=== PATIENT | male | born 1955 | race Caucasian/White ===

== ENCOUNTER 2016-06-05 12:23 | Outpatient (CLI) | payer OTHER | END 2016-06-05 12:24 | disposition home or self-care (01) | DX: K57.30 Diverticulosis of large intestine without perforation or abscess without bleeding (principal) ==

== ENCOUNTER 2016-06-12 08:49 | Day surgery (SDC) | payer OTHER ==
[2016-06-12] MEDS ORDERED: ceFAZolin 2 GM/50 ML 50 ML IV ONE (09:12)
[2016-06-12] MEDS ORDERED: LACTATED RINGERS 1,000 ML IV ONE (09:15)
[2016-06-12] MEDS ORDERED: MIDAZOLAM 2 MG/2 ML VIAL IVP ONE (11:00)
[2016-06-12] MEDS ORDERED: PROPOFOL 200 MG/20 ML VIAL IVP ONE (11:00)
[2016-06-12] MEDS ORDERED: LIDOCAINE 1% 50 ML MDV SUBQ ONE (11:00)
[2016-06-12] MEDS ORDERED: DEXAMETHASONE 4 MG/ML VIAL IVP ONE (11:00)
[2016-06-12] MEDS ORDERED: fentaNYL 100 MCG/2 ML VIAL IVP ONE (11:00)
[2016-06-12] MEDS ORDERED: KETOROLAC 30 MG/ML VIAL IVP ONE (11:00)
[2016-06-12] MEDS ORDERED: ONDANSETRON 4 MG/2 ML VIAL IVP ONE (11:00)
[2016-06-12] MEDS ORDERED: BUPIVACAINE 0.5% PF 30 ML VIAL SUBQ ONE ×2 (11:26→12:25)
== END 2016-06-12 08:50 | disposition home or self-care (01) ==
PROC: 07BC0ZZ Excision of Pelvis Lymphatic, Open Approach (ICD-10-PCS; 2016-06-12)
PROC: 0YU80JZ Supplement Left Femoral Region with Synthetic Substitute, Open Approach (ICD-10-PCS; principal; 2016-06-12 10:15)
DX: K41.90 Unilateral femoral hernia, without obstruction or gangrene, not specified as recurrent (principal); R59.0 Localized enlarged lymph nodes; I10 Essential (primary) hypertension; R06.83 Snoring; E66.9 Obesity, unspecified; Z68.36 Body mass index [BMI] 36.0-36.9, adult
CPT/HCPCS: 49550; C1781; J0690; J7120

== ENCOUNTER 2017-11-12 17:09 | Emergency (ER) | payer OTHER ==
[2017-11-12 18:28] LABS: BASOPHILS # (AUTO) 0.1 10^3/uL (0.0-0.1); BASOPHILS % (AUTO) 0.9 %; EOSINOPHILS # (AUTO) 0.3 10^3/uL (0.0-0.7); EOSINOPHILS % (AUTO) 4.4 %; HGB - HEMOGLOBIN 15.2 g/dL (14.0-18.0); LYMPHOCYTES % (AUTO) 39.8 %; MEAN CORPUSCULAR HEMOGLOBIN 31.3 pg (27.0-31.0); MEAN CORPUSCULAR HGB CONC 33.9 g/dL (32.0-36.0); MEAN CORPUSCULAR VOLUME 92.2 fL (80.0-94.0); MEAN PLATELET VOLUME 7.7 fL (7.4-11.4); MONOCYTES # (AUTO) 0.6 10^3/uL (0.0-1.0); MONOCYTES % (AUTO) 7.3 %; NEUTROPHILS # (AUTO) 3.6 10^3/uL (1.5-6.6); NEUTROPHILS % (AUTO) 47.6 %; PLT - PLATELET COUNT 212 10^3/uL (130-450); RED BLOOD COUNT 4.85 10^6/uL (4.70-6.10); RED CELL DISTRIBUTION WIDTH 13.9 % (12.0-15.0); WHITE BLOOD COUNT 7.6 x10^3/uL (4.8-10.8)
--- NOTE | 2017-11-12 18:30 | ED Physician Documentation ---
PD HPI CHEST PAIN - Stated complaint Stated Complaint: CP/SOA/TIRED - Chief complaint Chief Complaint: Cardiac - History obtained from History obtained from: Patient - History of Present Illness Timing - onset: How many hours ago (3), Today Timing - onset during: Rest (he was sitting in recliner chair after lunch and felt onset of nausea, chest pressure and dyspnea. This lasted about an hour or so. Improved slowly. Symptoms essentially resolved here in the ER by time of my exam.) Timing - duration: Hours (1-2) Timing - details: Abrupt onset, Now resolved Quality: Pressure, Aching. No: Sharp, Stabbing Location: Substernal Radiation: Neck Improved by: No: Rest Worsened by: No: Inspiration, Movement Associated symptoms: Shortness of air, Nausea, Feeling faint / dizzy. No: Vomiting, General Weakness, Palpitations Similar symptoms before: Has not had sx before, Other (he was doing more exertion the past couple of days playing with his grandson and felt okay during that. Was a little sore in back yesterday. No exertional CP nor dyspnea with activity.) Recently seen: Not recently seen Review of Systems Constitutional: denies: Fever, Chills Nose: denies: Rhinorrhea / runny nose, Congestion Throat: denies: Sore throat Cardiac: denies: Palpitations, Pedal edema, Calf pain Respiratory: denies: Cough GI: denies: Abdominal Pain, Nausea, Vomiting, Diarrhea, Bloody / black stool Skin: denies: Rash, Lesions Neurologic: reports: Generalized weakness. denies: Focal weakness, Numbness, Near syncope PD PAST MEDICAL HISTORY - Past Medical History Past Medical History: Yes Cardiovascular: Hypertension, High cholesterol Respiratory: None Endocrine/Autoimmune: None GI: None : None HEENT: None Psych: None Musculoskeletal: Other Derm: None - Past Surgical History Past Surgical History: Yes General: Colonoscopy, EGD Ortho: Arthroscopic surgery HEENT: Tonsil/Adenoidectomy - Present Medications Home Medications: Ambulatory Orders Medication Instructions Recorded Confirmed Aspirin [Aspir 81] 81 mg PO DAILY 05/02/15 06/11/16 Hydrochlorothiazide 25 mg PO DAILY 05/02/15 06/11/16 Ibuprofen [Motrin] 800 mg PO Q8H PRN 05/02/15 06/11/16 Lisinopril 10 mg PO DAILY 05/02/15 06/11/16 Simvastatin 20 mg PO DAILY 05/02/15 06/11/16 Multivitamin [Multi-Day Vitamins] 1 each PO DAILY 05/04/15 06/12/16 Omeprazole [Prilosec] 1 tab PO DAILY 05/04/15 06/11/16 - Allergies Allergies/Adverse Reactions: Allergies Allergy/AdvReac Type Severity Reaction Status Date / Time No Known Drug Allergies Allergy Verified 05/02/15 13:41 - Social History Does the pt smoke?: No Smoking Status: Never smoker Does the pt drink ETOH?: Yes Does the pt have substance abuse?: No - Family History Family history: reports: CAD - Immunizations Immunizations are current?: Yes - POLST Patient has POLST: No PD ED PE NORMAL - Vitals Vital signs reviewed: Yes - General General: Alert and oriented X 3, No acute distress, Well developed/nourished - HEENT HEENT: Moist mucous membranes, Pharynx benign - Neck Neck: Supple, no meningeal sign, No adenopathy - Cardiac Cardiac: RRR, No murmur - Respiratory Respiratory: Clear bilaterally - Abdomen Abdomen: Normal bowel sounds, Soft, Non tender, Non distended - Male Male : Deferred - Rectal Rectal: Deferred - Back Back: No CVA TTP - Derm Derm: Normal color, Warm and dry - Extremities Extremities: No deformity, No tenderness to palpate, Normal ROM s pain, No edema , No calf tenderness / cord - Neuro Neuro: Alert and oriented X 3, No motor deficit, Normal speech Results - Vitals Vitals: Vital Signs - 24 hr 11/12/17 11/12/17 11/12/17 17:19 20:01 20:57 Temperature 36.3 C L Heart Rate 73 58 L 63 Respiratory 18 16 16 Rate Blood Pressure 133/81 H 113/75 110/76 O2 Saturation 96 96 99 Oxygen O2 Source Room air - EKG (time done) 17:21 Rate: Rate (enter#) (68) Rhythm: NSR [place]: Normal Intervals: Normal NM QRS: Normal Ischemia: Normal ST segments. No: ST elevation c/w ischemia, ST depression Compare to prior EKG: Old EKG unavailable - Labs Labs: Laboratory Tests 11/12/17 11/12/17 11/12/17 18:20 18:24 18:24 WBC 7.6 RBC 4.85 Hgb 15.2 Hct 44.8 MCV 92.2 MCH 31.3 H MCHC 33.9 RDW 13.9 Plt Count 212 MPV 7.7 Neut # (Auto) 3.6 Lymph # (Auto) 3.0 [place] # (Auto) 0.6 Eos # (Auto) 0.3 Baso # (Auto) 0.1 Absolute Nucleated RBC 0.01 Nucleated RBC % 0.1 Sodium 135 Potassium 3.2 L Chloride 96 L Carbon Dioxide 30 Anion Gap 9.0 BUN 27 H Creatinine 1.2 Estimated GFR (MDRD) 62 L Glucose 130 H Calcium 8.9 Total Bilirubin 0.5 AST 25 ALT 18 Alkaline Phosphatase 88 Troponin I B-Natriuretic Peptide < 5 L Total Protein 7.8 Albumin 4.0 Globulin 3.8 Albumin/Globulin Ratio 1.1 Lipase 28 11/12/17 11/12/17 18:24 20:09 WBC RBC Hgb Hct MCV MCH MCHC RDW Plt Count MPV Neut # (Auto) Lymph # (Auto) [place] # (Auto) Eos # (Auto) Baso # (Auto) Absolute Nucleated RBC Nucleated RBC % Sodium Potassium Chloride Carbon Dioxide Anion Gap BUN Creatinine Estimated GFR (MDRD) Glucose Calcium Total Bilirubin AST ALT Alkaline Phosphatase Troponin I < 0.04 < 0.04 B-Natriuretic Peptide Total Protein Albumin Globulin Albumin/Globulin Ratio Lipase - Rads (name of study) chest xray Radiology: Prelim report reviewed, EMP read contemporaneously (normal) PD MEDICAL DECISION MAKING - ED course Complexity details: re-evaluated patient (pain still gone and repeat troponin is normal (at about 5 hours after pain episode). ), considered differential, d/ w patient - Sepsis Event Vital Signs: Vital Signs - 24 hr 11/12/17 11/12/17 11/12/17 17:19 20:01 20:57 Temperature 36.3 C L Heart Rate 73 58 L 63 Respiratory 18 16 16 Rate Blood Pressure 133/81 H 113/75 110/76 O2 Saturation 96 96 99 Oxygen O2 Source Room air Departure - Departure Disposition: 01 Home, Self Care Clinical Impression: Chest pain Qualifiers: Chest pain type: precordial pain Qualified Code(s): R07.2 - Precordial pain Clinical Impression: (Ruled Out): Myocardial infarction Condition: Stable Record reviewed to determine appropriate education?: Yes Instructions: ED Chest Pain NonCardiac Comments: No signs of heart attack or heart failure based on your EKG or blood tests. Your chest x-ray appeared normal as well. I do not know the cause of the chest discomfort that you had earlier. It might have been reflux or heartburn. It does not look to be heart caused at this time. Follow up with your primary care if recurrent episodes and return to the ER if worse symptoms. Discharge Date/Time: 11/12/17 21:37
[2017-11-12 18:41] LABS: ALBUMIN/GLOBULIN RATIO 1.1 (1.0-2.2); BILIRUBIN,TOTAL 0.5 mg/dL (0.2-1.0); CALCIUM 8.9 mg/dL (8.5-10.3); CREATININE 1.2 mg/dL (0.6-1.2); TOTAL PROTEIN 7.8 g/dL (6.7-8.2)
--- NOTE | 2017-11-12 19:17 | XRAY Report ---
Procedure Date: 11/12/2017 Accession Number: [id number] / [id number] Procedure: XR - Chest 1 View X-Ray CPT Code: 64800 FULL RESULT: EXAM: CHEST RADIOGRAPHY EXAM DATE: 11/12/2017 06:56 PM. CLINICAL HISTORY: Chest pain this afternoon. COMPARISON: None. TECHNIQUE: 1 view. FINDINGS: Lungs/Pleura: No focal opacities evident. No pleural effusion. No pneumothorax. Mediastinum: Heart size is normal. Trachea is midline. Other: None. IMPRESSION: Negative chest. RADIA
[2017-11-12 20:58] VITALS: BP 110/76
== END 2017-11-12 21:37 | disposition home or self-care (01) ==
LOC: ED 17:09
DX: R07.2 Precordial pain (principal)
CPT/HCPCS: 36415; 71045; 80053; 83690; 83880; 84484; 85025; 93005; 99283

== ENCOUNTER 2018-08-24 15:57 | Emergency (ER) | payer OTHER ==
[2018-08-24] MEDS ORDERED: KETOROLAC 30 MG/ML VIAL IVP STA (16:10)
[2018-08-24] MEDS ORDERED: HYDROmorphone 1 MG/ML CARPUJECT IVP STA (16:10)
[2018-08-24] MEDS ORDERED: ONDANSETRON 4 MG/2 ML VIAL IVP STA (16:10)
--- NOTE | 2018-08-24 16:12 | ED Physician Documentation ---
PD HPI BACK PAIN - Stated complaint Stated Complaint: BACK PX - Chief complaint Chief Complaint: Back Pain - History obtained from History obtained from: Patient - History of Present Illness Timing - onset: Other (62-year-old gentleman with remote history of renal colic presents with mild flank pain that started 2 days ago and is much more severe today. It is on the left. It radiated down the leg a little bit. It hurts to move. He denies nausea, vomiting, saddle anesthesia, urinary complaints, or problems with bowel movements save for mild constipation but he did have a normal BM today. No fevers.) Review of Systems Constitutional: reports: Reviewed and negative Throat: reports: Reviewed and negative Cardiac: reports: Reviewed and negative Respiratory: reports: Reviewed and negative PD PAST MEDICAL HISTORY - Past Medical History Cardiovascular: Hypertension, High cholesterol Respiratory: None Endocrine/Autoimmune: None GI: None : None HEENT: None Psych: None Musculoskeletal: Other Derm: None - Past Surgical History Past Surgical History: Yes General: Colonoscopy, EGD Ortho: Arthroscopic surgery HEENT: Tonsil/Adenoidectomy - Present Medications Home Medications: Ambulatory Orders Medication Instructions Recorded Confirmed Aspirin [Aspir 81] 81 mg PO DAILY 05/02/15 08/24/18 Hydrochlorothiazide 25 mg PO DAILY 05/02/15 08/24/18 Simvastatin 20 mg PO DAILY 05/02/15 08/24/18 Multivitamin [Multi-Day Vitamins] 1 each PO DAILY 05/04/15 08/24/18 Levofloxacin [Levaquin] 500 mg PO DAILY #7 tablet 08/24/18 Oxycodone HCl/Acetaminophen 1 - 2 each PO Q6H PRN #14 tablet 08/24/18 [Percocet 5-325 mg Tablet] - Allergies Allergies/Adverse Reactions: Allergies Allergy/AdvReac Type Severity Reaction Status Date / Time No Known Drug Allergies Allergy Verified 08/24/18 16:02 - Social History Does the pt smoke?: No Smoking Status: Never smoker Does the pt drink ETOH?: Yes Does the pt have substance abuse?: No - Immunizations Immunizations are current?: Yes - POLST Patient has POLST: No PD ED PE NORMAL - Vitals Vital signs reviewed: Yes - General General: Alert and oriented X 3, Other (Visibly uncomfortable and wincing with motion) - HEENT HEENT: PERRL, EOMI - Neck Neck: Supple, no meningeal sign, No bony TTP - Cardiac Cardiac: RRR, No murmur - Respiratory Respiratory: No respiratory distress, Clear bilaterally - Abdomen Abdomen: Soft, Non tender - Back Back: Other (Tender to the left flank that seems a little more muscular than CVA per se. Its a little to the lateral area of the left flank. No overlying rash. The patient has equal and normal Achilles and patellar reflexes bilaterally. Normal sensation in all areas of the legs. Patient denies saddle anesthesia. Normal strength in flexion-extension at the ankles, knees, and flexion of the hips.) - Extremities Extremities: No edema, No calf tenderness / cord - Neuro Neuro: Alert and oriented X 3, Normal speech Results - Vitals Vitals: Vital Signs - 24 hr 08/24/18 16:01 Temperature 36.7 C Heart Rate 71 Respiratory 18 Rate Blood Pressure 167/77 H O2 Saturation 95 Oxygen O2 Source Room air - Labs Labs: Laboratory Tests 08/24/18 08/24/18 08/24/18 16:24 16:25 16:25 WBC 7.5 RBC 5.02 Hgb 15.4 Hct 45.2 MCV 89.9 MCH 30.7 MCHC 34.2 RDW 14.0 Plt Count 212 MPV 8.0 Neut # (Auto) 3.3 Lymph # (Auto) 3.0 [place] # (Auto) 0.8 Eos # (Auto) 0.3 Baso # (Auto) 0.1 Absolute Nucleated RBC 0.01 Nucleated RBC % 0.1 Sodium 135 Potassium 3.4 L Chloride 98 L Carbon Dioxide 29 Anion Gap 8.0 BUN 21 H Creatinine 1.0 Estimated GFR (MDRD) 76 L Glucose 101 H Calcium 8.8 Total Bilirubin 0.4 AST 31 ALT 31 Alkaline Phosphatase 80 Total Protein 7.5 Albumin 3.8 Globulin 3.7 Albumin/Globulin Ratio 1.0 Lipase 29 Urine Color YELLOW Urine Clarity CLEAR Urine pH 7.0 Ur Specific [place] <=1.005 Urine Protein NEGATIVE Urine Glucose (UA) NEGATIVE Urine Ketones NEGATIVE Urine Occult Blood TRACE-INTA Urine Nitrite POSITIVE H Urine Bilirubin NEGATIVE Urine Urobilinogen 0.2 (NORMAL) Ur Leukocyte Esterase NEGATIVE Urine RBC 6-10 H Urine WBC 0-3 Ur Squamous Epith Cells NONE SEEN Urine Bacteria Rare Urine Starch PRESENT Ur Microscopic Review INDICATED Urine Culture Comments INDICATED - Rads (name of study) CT KUB Radiology: EMP read contemporaneously (No ureterolith, he does have a dilated appendix with an appendicolith at the tip but no other secondary signs of appendicitis.) PD MEDICAL DECISION MAKING - ED course ED course: 62-year-old gentleman presents with left-sided back pain that seems more musculoskeletal than anything else and is closely associated with motion. He had a history of nephrolithiasis and this is also on the differential. He was feeling much better after pain medication. His work-up demonstrates evidence of UTI and CT results as shown. He has no right-sided abdominal pain, no tenderness in the right lower quadrant. The diagnosis of an appendicolith was discussed with him, and he understands that if he develops central abdominal pain or right lower quadrant pain this needs to be made aware to any subsequent physicians. Departure - Departure Disposition: 01 Home, Self Care Clinical Impression: Appendicolith Back pain Qualifiers: Back pain location: low back pain Chronicity: acute Back pain laterality: left Sciatica presence: without sciatica Qualified Code(s): M54.5 - Low back pain UTI (urinary tract infection) Qualifiers: Urinary tract infection type: acute pyelonephritis Qualified Code(s): N10 - Acute pyelonephritis Condition: Good Record reviewed to determine appropriate education?: Yes Instructions: ED UTI Cystitis Male, ED Low Back Pain Injury Prescriptions: Levofloxacin [Levaquin] 500 mg PO DAILY #7 tablet Oxycodone HCl/Acetaminophen [Percocet 5-325 mg Tablet] 1 - 2 each PO Q6H PRN #14 tablet PRN Reason: pain Comments: DISCUSSED YOU HAVE AN APPENDICOLITH This puts you at increased risk of developing appendicitis in the future which have no sign of right now but if you develop right lower quadrant pain or central abdominal pain please notify any subsequent physicians of this diagnosis. Return for new or worsening symptoms. We will culture your urine, the results should be done in 48-72 hours. If an antibiotic change is necessary we will call you. Return if worse in the meantime, especially if you develop increasing flank pain, fevers, or cannot keep down the medication. Forms: Activity restrictions
[2018-08-24 16:40] LABS: BILIRUBIN,URINE NEGATIVE (NEGATIVE); GLUCOSE, URINE (UA) NEGATIVE (NEGATIVE); KETONES,URINE (UA) NEGATIVE (NEGATIVE); LEUKOCYTE ESTERASE, URINE NEGATIVE (NEGATIVE); NITRITE,URINE POSITIVE (NEGATIVE); OCCULT BLOOD,URINE TRACE-INTA (NEGATIVE); PROTEIN,URINE NEGATIVE (NEGATIVE); UROBILINOGEN,URINE 0.2 (NORMAL) E.U./dL (NORMAL)
[2018-08-24 16:41] LABS: BASOPHILS # (AUTO) 0.1 10^3/uL (0.0-0.1); BASOPHILS % (AUTO) 0.7 %; EOSINOPHILS # (AUTO) 0.3 10^3/uL (0.0-0.7); EOSINOPHILS % (AUTO) 4.6 %; HGB - HEMOGLOBIN 15.4 g/dL (14.0-18.0); LYMPHOCYTES % (AUTO) 40.3 %; MEAN CORPUSCULAR HEMOGLOBIN 30.7 pg (27.0-31.0); MEAN CORPUSCULAR HGB CONC 34.2 g/dL (32.0-36.0); MEAN CORPUSCULAR VOLUME 89.9 fL (80.0-94.0); MONOCYTES # (AUTO) 0.8 10^3/uL (0.0-1.0); MONOCYTES % (AUTO) 10.2 %; NEUTROPHILS # (AUTO) 3.3 10^3/uL (1.5-6.6); NEUTROPHILS % (AUTO) 44.2 %; PLT - PLATELET COUNT 212 10^3/uL (130-450); RED BLOOD COUNT 5.02 10^6/uL (4.70-6.10); WHITE BLOOD COUNT 7.5 x10^3/uL (4.8-10.8)
[2018-08-24 16:44] LABS: ALBUMIN 3.8 g/dL (3.2-5.5); BILIRUBIN,TOTAL 0.4 mg/dL (0.2-1.0); CALCIUM 8.8 mg/dL (8.5-10.3); TOTAL PROTEIN 7.5 g/dL (6.7-8.2)
[2018-08-24 16:45] LABS: CLARITY,URINE CLEAR (CLEAR)
[2018-08-24 16:53] LABS: BACTERIA,URINE Rare /HPF (None Seen); SQUAMOUS EPITHELIAL CELL,UR NONE SEEN (<= Few); STARCH,URINE PRESENT
--- NOTE | 2018-08-24 17:06 | CT Report ---
Reason: L flank pain Procedure Date: 08/24/2018 Accession Number: [id number] / [id number] Procedure: CT - Abdomen/Pelvis WO CPT Code: FULL RESULT: EXAM: CT ABDOMEN AND PELVIS (CT KUB) EXAM DATE: 08/24/2018 04:48 PM. CLINICAL HISTORY: L flank pain. COMPARISONS: PELVIS W/O 06/05/2016 12:47 PM. TECHNIQUE: Routine axial helical CT imaging was performed through the abdomen and pelvis without IV contrast. Reconstructions: Coronal and sagittal. In accordance with CT protocol optimization, one or more of the following dose reduction techniques were utilized for this exam: automated exposure control, adjustment of mA and/or KV based on patient size, or use of iterative reconstructive technique. FINDINGS: Lung Bases: Unremarkable. Right Kidney/Ureter: No stones, hydronephrosis, or hydroureter. No perinephric fat stranding. Left Kidney/Ureter: No stones, hydronephrosis, or hydroureter. No perinephric fat stranding. Other Solid Organs: Noncontrast images of the solid organs are grossly unremarkable. Gallbladder/Bile Ducts: The gallbladder is contracted. Peritoneal Cavity: Small hiatal hernia. Nonobstructive bowel gas pattern. Diverticulosis of the sigmoid colon without evidence of acute diverticulitis. The appendix measures up to 13 mm in diameter. There is a 3 mm calcified appendicolith at the tip of the appendix. No significant inflammatory change to the periappendiceal mesentery or cecal base. No free air or free fluid. Pelvic Organs: No bladder stones or wall thickening. Noncontrast images of the visualized pelvic organs are unremarkable. Probable vasectomy changes in the spermatic cords. Vasculature: Scattered calcified plaques throughout the abdominal aorta without evidence of aneurysm. There is a retroaortic left renal vein. Other: No acute fracture or dislocation. Degenerative disk disease at L5-S1, T12-L1, and T10-T11. IMPRESSION: No evidence of hydronephrosis or nephrolithiasis. Dilated appendix measuring up to 13 mm in diameter with intraluminal appendicolith at the tip of the appendix. No significant associated inflammatory changes. Recommend clinical correlation for evidence of acute appendicitis. Small hiatal hernia. Nonobstructive bowel gas pattern. Sigmoid diverticulosis without evidence of acute diverticulitis. RADIA
[2018-08-24] MEDS ORDERED: levoFLOXacin 250 MG TABLET PO STA (17:13)
[2018-08-24] MEDS ORDERED: oxyCODONE/ACET 5/325 Prepack 4 PO STA (17:13)
[2018-08-24 17:24] VITALS: BP 117/80
== END 2018-08-24 17:26 | disposition home or self-care (01) ==
LOC: ED 15:57
DX: N10 Acute pyelonephritis (principal); K38.1 Appendicular concretions; M54.5 Low back pain; I10 Essential (primary) hypertension; Z87.442 Personal history of urinary calculi; Z79.82 Long term (current) use of aspirin
CPT/HCPCS: 36415; 74176; 80053; 81001; 83690; 85025; 87086; 96374; 96375; 99283; 99284; A9270; J1170; 81003

== ENCOUNTER 2018-10-11 11:47 | Emergency (ER) | payer OTHER ==
[2018-10-11 11:55] VITALS: BP 170/91
--- NOTE | 2018-10-11 13:15 | XRAY Report ---
Reason: heel pain while playing tennis Procedure Date: 10/11/2018 Accession Number: [id number] / [id number] Procedure: XR - Foot 3 View LT CPT Code: FULL RESULT: EXAM: LEFT FOOT RADIOGRAPHY EXAM DATE: 10/11/2018 01:01 PM. CLINICAL HISTORY: Heel pain while playing tennis. Quentin a pop. Instant pain. COMPARISON: None. TECHNIQUE: 3 views. FINDINGS: Bones: Small well-corticated plantar calcaneal enthesophyte. No fracture. No lucent or sclerotic lesion. Joints: Normal. No subluxations. Soft Tissues: Mild soft tissue swelling over the medial midfoot. IMPRESSION: No fracture or malalignment. RADIA
--- NOTE | 2018-10-11 13:16 | ED Physician Documentation ---
History of Present Illness - Stated complaint Stated Complaint: LFT HEEL INJ - Chief complaint Chief Complaint: Trauma Ext - History obtained from History obtained from: Patient - History of Present Illness Timing: Prior to arrival - Additonal information Additional information: Patient is a 63-year-old male presenting with left heel pain while playing tennis just prior to arrival. Patient reports that he stepped on his foot and then felt a popping sensation and pain. Patient reports it has been difficult to bear weight. Patient denies any external changes including abrasions, bulges, or lacerations. Patient also denies any sensation, strength, range of motion changes to this foot or leg. No other injuries. No other improving or worsening factors noted. Review of Systems Skin: denies: Rash Musculoskeletal: reports: Extremity pain PD PAST MEDICAL HISTORY - Past Medical History Cardiovascular: Hypertension, High cholesterol Respiratory: None Endocrine/Autoimmune: None GI: None : None HEENT: None Psych: None Musculoskeletal: Other Derm: None - Past Surgical History Past Surgical History: Yes General: Colonoscopy, EGD Ortho: Arthroscopic surgery HEENT: Tonsil/Adenoidectomy - Present Medications Home Medications: Ambulatory Orders Medication Instructions Recorded Confirmed Aspirin [Aspir 81] 81 mg PO DAILY 05/02/15 08/24/18 Hydrochlorothiazide 25 mg PO DAILY 05/02/15 08/24/18 Simvastatin 20 mg PO DAILY 05/02/15 08/24/18 Multivitamin [Multi-Day Vitamins] 1 each PO DAILY 05/04/15 08/24/18 Levofloxacin [Levaquin] 500 mg PO DAILY #7 tablet 08/24/18 Oxycodone HCl/Acetaminophen 1 - 2 each PO Q6H PRN #14 tablet 08/24/18 [Percocet 5-325 mg Tablet] - Allergies Allergies/Adverse Reactions: Allergies Allergy/AdvReac Type Severity Reaction Status Date / Time No Known Drug Allergies Allergy Verified 08/24/18 16:02 - Social History Does the pt smoke?: No Smoking Status: Never smoker Does the pt drink ETOH?: Yes Does the pt have substance abuse?: No - Immunizations Immunizations are current?: Yes - POLST Patient has POLST: No PD ED PE NORMAL - Vitals Vital signs reviewed: Yes - General General: Alert and oriented X 3, No acute distress, Well developed/nourished - Cardiac Cardiac: Strong equal pulses (Cap refill brisk) - Respiratory Respiratory: No respiratory distress - Derm Derm: Normal color, Warm and dry, No rash - Extremities Extremities: No deformity. No: No tenderness to palpate (Mild tenderness to left heel only with no obvious deformity. Intact palpable, nontender Achilles tendon. No other bony tenderness, deformity, swelling or other changes. Left lower extremity neurovascularly intact with appropriate range of motion and strength.) - Neuro Neuro: Alert and oriented X 3, No motor deficit, No sensory deficit - Psych Psych: Normal mood, Normal affect Results - Vitals Vitals: Vital Signs - 24 hr 10/11/18 11:53 Temperature 36.4 C L Heart Rate 80 Respiratory 18 Rate Blood Pressure 170/91 H O2 Saturation 95 Oxygen O2 Source Room air PD MEDICAL DECISION MAKING - ED course Complexity details: reviewed results, re-evaluated patient, considered differential, d/w patient ED course: Patient has a history of plantar fasciitis and feel this could likely be a flare. Also consider an Achilles tendon tear or rupture, however, based on physical exam findings, location of discomfort, and range of motion, feel less likely. Patient has no pain along palpation of Achilles tendon at all. No other bony tenderness to indicate fracture and plain film returned unremarkable. No other external infectious signs or trauma. Feel that patient is safe to discharge home with crutches and supportive cares. Also discussed strict return precautions and appropriate follow-up. Patient voiced understanding and is comfortable with discharge plan. Departure - Departure Disposition: 01 Home, Self Care Clinical Impression: Foot injury Qualifiers: Encounter type: initial encounter Laterality: left Qualified Code(s): S99.922A - Unspecified injury of left foot, initial encounter Condition: Good Instructions: Heel Pain Follow-Up: Delmi Fabian ARNP [Primary Care Provider] - Within 3 Days Comments: Recommend elevation, ice application, ibuprofen/Tylenol as needed for discomfort. Please refrain from any strenuous exercise until fully healed. Follow-up with primary care physician in next 2 to 3 days and return to ED sooner if experience worsening symptoms or other concerns.
== END 2018-10-11 13:51 | disposition home or self-care (01) ==
LOC: ED 11:47
DX: S99.922A Unspecified injury of left foot, initial encounter (principal); X50.9XXA Other and unspecified overexertion or strenuous movements or postures, initial encounter; Y93.73 Activity, racquet and hand sports; Y92.312 Tennis court as the place of occurrence of the external cause; I10 Essential (primary) hypertension; Z79.82 Long term (current) use of aspirin
CPT/HCPCS: 99282

== ENCOUNTER 2019-09-12 03:40 | Emergency (ER) | payer OTHER ==
[2019-09-12 03:52] VITALS: BP 175/95
[2019-09-12] MEDS ORDERED: ALBUTEROL 1 PUFF INH STA (04:14)
[2019-09-12 04:33] LABS: BASOPHILS # (AUTO) 0.1 10^3/uL (0.0-0.1); BASOPHILS % (AUTO) 0.7 %; EOSINOPHILS # (AUTO) 0.4 10^3/uL (0.0-0.7); EOSINOPHILS % (AUTO) 5.1 %; HGB - HEMOGLOBIN 15.5 g/dL (14.0-18.0); LYMPHOCYTES % (AUTO) 40.3 %; MEAN CORPUSCULAR HEMOGLOBIN 29.5 pg (27.0-31.0); MEAN CORPUSCULAR HGB CONC 33.3 g/dL (32.0-36.0); MEAN CORPUSCULAR VOLUME 88.8 fL (80.0-94.0); MEAN PLATELET VOLUME 9.7 fL (7.4-11.4); MONOCYTES # (AUTO) 0.5 10^3/uL (0.0-1.0); MONOCYTES % (AUTO) 6.8 %; NEUTROPHILS # (AUTO) 3.5 10^3/uL (1.5-6.6); NEUTROPHILS % (AUTO) 46.7 %; PLT - PLATELET COUNT 205 10^3/uL (130-450); RED BLOOD COUNT 5.25 10^6/uL (4.70-6.10); RED CELL DISTRIBUTION WIDTH 13.2 % (12.0-15.0); WHITE BLOOD COUNT 7.4 x10^3/uL (4.8-10.8)
--- NOTE | 2019-09-12 04:37 | XRAY Report ---
Reason: chest pain Procedure Date: 09/12/2019 Accession Number: [id number] / [id number] Procedure: XR - Chest 1 View X-Ray CPT Code: 81560 Final Report FULL RESULT: EXAM: CHEST RADIOGRAPHY EXAM DATE: 09/12/2019 04:30 AM. CLINICAL HISTORY: Chest pain. Shortness of breath. Nonproductive cough. COMPARISON: CHEST 1 VIEW 11/12/2017 6:46 PM. TECHNIQUE: 1 view. FINDINGS: Lungs/Pleura: No focal opacities evident. No pulmonary edema. No pleural effusion. No pneumothorax. Mediastinum: Within exam limitations, the cardiomediastinal contour is normal. Other: None. IMPRESSION: No evidence of acute cardiopulmonary process. RADIA
[2019-09-12 04:48] LABS: ALBUMIN 4.1 g/dL (3.2-5.5); BILIRUBIN,TOTAL 0.9 mg/dL (0.2-1.0); CALCIUM 9.2 mg/dL (8.5-10.3); CREATININE 1.1 mg/dL (0.6-1.2); TOTAL PROTEIN 8.1 g/dL (6.7-8.2)
--- NOTE | 2019-09-12 05:16 | ED Physician Documentation ---
PD HPI DYSPNEA - Stated complaint Stated Complaint: COUGH/AB PX - Chief complaint Chief Complaint: Resp - History obtained from History obtained from: Patient - History of Present Illness Timing - onset: How many days ago (has noted nasal congestion, scratchy throat with mild cough and some dyspnea for 2-3 days. More dyspnea the past few hours.) Timing - onset during: Rest, Light activity. No: Exertion Timing - duration: Hours (for the current feeling of chest tightness and trouble breathing.), Days (for nasal/sinus congestion and mild scratchy cough) Timing - details: Gradual onset, Waxing and waning Inciting event(s): No: Out of meds, URI (he thought symptoms were allergies initially. But with worse dyspnea this evening, he is concerned about infectious/COVID cause.) Improved by: No: Rest Associated symptoms: Cough, Chest pain / discomfort (tightness). No: Fever, Wheezing, Palpitations, Diaphoresis, Bilateral edema Similar symptoms before: Has not had sx before Review of Systems Constitutional: reports: Fatigue. denies: Fever, Chills, Myalgias Ears: denies: Ear pain Nose: reports: Rhinorrhea / runny nose. denies: Congestion Throat: denies: Sore throat Respiratory: reports: Dyspnea, Cough (mild scratchy throat). denies: Wheezing GI: denies: Nausea, Vomiting, Diarrhea Skin: denies: Rash Musculoskeletal: denies: Neck pain, Back pain Neurologic: denies: Generalized weakness, Focal weakness, Numbness, Near syncope PD PAST MEDICAL HISTORY - Past Medical History Past Medical History: Yes Cardiovascular: Hypertension, High cholesterol Respiratory: None Neuro: None Endocrine/Autoimmune: None GI: None : None HEENT: None Psych: None Musculoskeletal: Other Derm: None - Past Surgical History Past Surgical History: Yes General: Appendectomy, Colonoscopy, EGD, Other Ortho: Arthroscopic surgery HEENT: Tonsil/Adenoidectomy - Present Medications Home Medications: Ambulatory Orders Medication Instructions Recorded Confirmed Aspirin [Aspir 81] 81 mg PO DAILY 05/02/15 08/24/18 Hydrochlorothiazide 25 mg PO DAILY 05/02/15 08/24/18 Simvastatin 20 mg PO DAILY 05/02/15 08/24/18 Multivitamin [Multi-Day Vitamins] 1 each PO DAILY 05/04/15 08/24/18 Levofloxacin [Levaquin] 500 mg PO DAILY #7 tablet 08/24/18 Oxycodone HCl/Acetaminophen 1 - 2 each PO Q6H PRN #14 tablet 08/24/18 [Percocet 5-325 mg Tablet] Albuterol Sulfate [Albuterol 2 - 3 puffs IH QID #1 hfa.aer.ad 09/12/19 Sulfate Hfa] dexAMETHasone [Decadron] 4 mg PO DAILY #5 tablet 09/12/19 - Allergies Allergies/Adverse Reactions: Allergies Allergy/AdvReac Type Severity Reaction Status Date / Time No Known Drug Allergies Allergy Verified 09/12/19 03:51 - Social History Does the pt smoke?: No Smoking Status: Never smoker Does the pt drink ETOH?: Yes Does the pt have substance abuse?: No - Immunizations Immunizations are current?: Yes - POLST Patient has POLST: No PD ED PE NORMAL - Vitals Vital signs reviewed: Yes - General General: Alert and oriented X 3, No acute distress, Well developed/nourished - HEENT HEENT: Ears normal, Moist mucous membranes, Pharynx benign - Neck Neck: Supple, no meningeal sign, No adenopathy - Cardiac Cardiac: RRR, No murmur - Respiratory Respiratory: Clear bilaterally - Abdomen Abdomen: Soft, Non tender - Derm Derm: Normal color, Warm and dry - Extremities Extremities: Normal ROM s pain, No edema, No calf tenderness / cord - Neuro Neuro: Alert and oriented X 3, No motor deficit, Normal speech Results - Vitals Vitals: Vital Signs - 24 hr 09/12/19 09/12/19 09/12/19 03:50 03:57 04:58 Temperature 36.7 C Heart Rate 73 Respiratory 17 18 17 Rate Blood Pressure 175/95 H O2 Saturation 99 09/12/19 05:34 Temperature Heart Rate 71 Respiratory 17 Rate Blood Pressure O2 Saturation 98 Oxygen O2 Source Room air - EKG (time done) 04:28 Rate: Rate (enter#) (63) Rhythm: NSR [place]: Normal Intervals: Normal [place] QRS: Normal Ischemia: Normal ST segments. No: ST elevation c/w ischemia, ST depression - Labs Labs: Laboratory Tests 09/12/19 09/12/19 09/12/19 04:25 04:25 04:25 WBC 7.4 RBC 5.25 Hgb 15.5 Hct 46.6 MCV 88.8 MCH 29.5 MCHC 33.3 RDW 13.2 Plt Count 205 MPV 9.7 Neut # (Auto) 3.5 Lymph # (Auto) 3.0 [place] # (Auto) 0.5 Eos # (Auto) 0.4 Baso # (Auto) 0.1 Absolute Nucleated RBC 0.00 Nucleated RBC % 0.0 Sodium 140 Potassium 3.1 L Chloride 101 Carbon Dioxide 26 Anion Gap 13.0 BUN 18 Creatinine 1.1 Estimated GFR (MDRD) 68 L Glucose 121 H Calcium 9.2 Total Bilirubin 0.9 AST 24 ALT 22 Alkaline Phosphatase 97 Troponin I High Sens 4.5 Total Protein 8.1 Albumin 4.1 Globulin 4.0 Albumin/Globulin Ratio 1.0 Lipase 34 TSH Thyroxine (T4) Total T3 09/12/19 09/12/19 04:25 04:25 WBC RBC Hgb Hct MCV MCH MCHC RDW Plt Count MPV Neut # (Auto) Lymph # (Auto) [place] # (Auto) Eos # (Auto) Baso # (Auto) Absolute Nucleated RBC Nucleated RBC % Sodium Potassium Chloride Carbon Dioxide Anion Gap BUN Creatinine Estimated GFR (MDRD) Glucose Calcium Total Bilirubin AST ALT Alkaline Phosphatase Troponin I High Sens Total Protein Albumin Globulin Albumin/Globulin Ratio Lipase TSH 5.78 H Thyroxine (T4) 8.59 Total T3 1.06 - Rads (name of study) No standard instances Radiology: Prelim report reviewed, See rad report PD MEDICAL DECISION MAKING - ED course Complexity details: re-evaluated patient (feels improved with albuterol MDI. Seems likely c/w allergies/environmental with the nasal congestion, scratchy throat, and bronchial tightness. ), considered differential, d/w patient Departure - Departure Disposition: 01 Home, Self Care Clinical Impression: Dyspnea Qualifiers: Dyspnea type: shortness of breath Qualified Code(s): R06.02 - Shortness of breath Condition: Stable Record reviewed to determine appropriate education?: Yes Instructions: ED Reactive Airway Disease Follow-Up: Delmi Fabian ARNP [Primary Care Provider] - Prescriptions: Albuterol Sulfate [Albuterol Sulfate Hfa] 2 - 3 puffs IH QID #1 hfa.aer.ad dexAMETHasone [Decadron] 4 mg PO DAILY #5 tablet Comments: I think this sounds more like environmental or allergy related along with the sinus congestion and irritated throat that you have had, I think there is also some bronchial inflammation. No signs of heart attack or heart failure, pneumonia on your blood tests and EKG and chest x-ray. Your potassium is slightly low on blood test so you could use a mild potassium supplement for the next week or so. Otherwise use the albuterol inhaler 2 puffs 4 times a day for the next several days and then as needed. Also Decadron steroid anti-inflammatory to reduce airway inflammation and therefore improve your symptoms. Recheck if not improved well over the next few days. Discharge Date/Time: 09/12/19 05:35
[2019-09-12] MEDS ORDERED: CHERRY SYRUP 10 ML UDC PO ONE (05:24)
[2019-09-12] MEDS ORDERED: DEXAMETHASONE 10 MG/ML VIAL PO STA (05:24)
[2019-09-12 05:45] LABS: T4 (THYROXINE) 8.59 ug/dL (6.09-12.23)
[2019-09-12 05:54] LABS: TOTAL T3 1.06 ng/mL (0.87-1.78)
== END 2019-09-12 05:35 | disposition home or self-care (01) ==
LOC: ED 03:40
DX: R06.02 Shortness of breath (principal); R09.89 Other specified symptoms and signs involving the circulatory and respiratory systems; R05 Cough; I10 Essential (primary) hypertension; Z79.82 Long term (current) use of aspirin
CPT/HCPCS: 36415; 71045; 83690; 84436; 84480; 84484; 93005; 94640; 94664; 99284; A9270; 80053; 84443; 85025

== ENCOUNTER 2020-01-31 19:09 | Emergency (ER) | payer OTHER ==
[2020-01-31 19:31] LABS: BILIRUBIN,URINE NEGATIVE (NEGATIVE); GLUCOSE, URINE (UA) NEGATIVE (NEGATIVE); KETONES,URINE (UA) NEGATIVE (NEGATIVE); LEUKOCYTE ESTERASE, URINE NEGATIVE (NEGATIVE); NITRITE,URINE NEGATIVE (NEGATIVE); OCCULT BLOOD,URINE TRACE-INTA (NEGATIVE); PROTEIN,URINE NEGATIVE (NEGATIVE); UROBILINOGEN,URINE 0.2 (NORMAL) E.U./dL (NORMAL)
[2020-01-31 19:33] LABS: CLARITY,URINE CLEAR (CLEAR)
--- NOTE | 2020-01-31 21:10 | ED Physician Documentation ---
History of Present Illness - Stated complaint Stated Complaint: BACK PAIN - Chief complaint Chief Complaint: Abd Pain - History obtained from History obtained from: Patient - Additonal information Additional information: 64 Y/O M with a cc of left lumbar back pain worse with movement. reports a history of kidney stones previously. denies any gross hematuria. denies sycnope. no treatment prior to arrival. denies abd pain. denies any bowel or bladder dysfunction. denies lower extremity weakness. denies fevers or chills. Review of Systems Constitutional: reports: Reviewed and negative Eyes: reports: Reviewed and negative Ears: reports: Reviewed and negative Nose: reports: Reviewed and negative Throat: reports: Reviewed and negative Cardiac: reports: Reviewed and negative Respiratory: reports: Reviewed and negative GI: reports: Reviewed and negative : reports: Reviewed and negative Skin: reports: Reviewed and negative Musculoskeletal: reports: Back pain Neurologic: reports: Reviewed and negative Psychiatric: reports: Reviewed and negative Endocrine: reports: Reviewed and negative Immunocompromised: reports: Reviewed and negative PD PAST MEDICAL HISTORY - Past Medical History Cardiovascular: Hypertension, High cholesterol Respiratory: None Neuro: None Endocrine/Autoimmune: None GI: None : None HEENT: None Psych: None Musculoskeletal: Other Derm: None - Past Surgical History Past Surgical History: Yes General: Appendectomy, Colonoscopy, EGD, Other Ortho: Arthroscopic surgery HEENT: Tonsil/Adenoidectomy - Present Medications Home Medications: Ambulatory Orders Medication Instructions Recorded Confirmed Aspirin [Aspir 81] 81 mg PO DAILY 05/02/15 08/24/18 Hydrochlorothiazide 25 mg PO DAILY 05/02/15 08/24/18 Simvastatin 20 mg PO DAILY 05/02/15 08/24/18 Multivitamin [Multi-Day Vitamins] 1 each PO DAILY 05/04/15 08/24/18 Levofloxacin [Levaquin] 500 mg PO DAILY #7 tablet 08/24/18 Oxycodone HCl/Acetaminophen 1 - 2 each PO Q6H PRN #14 tablet 08/24/18 [Percocet 5-325 mg Tablet] Albuterol Sulfate [Albuterol 2 - 3 puffs IH QID #1 hfa.aer.ad 09/12/19 Sulfate Hfa] dexAMETHasone [Decadron] 4 mg PO DAILY #5 tablet 09/12/19 diazePAM [Valium] 5 mg PO BID PRN #7 tablet 01/31/20 - Allergies Allergies/Adverse Reactions: Allergies Allergy/AdvReac Type Severity Reaction Status Date / Time No Known Drug Allergies Allergy Verified 01/31/20 19:19 - Social History Does the pt smoke?: No Smoking Status: Never smoker Does the pt drink ETOH?: Yes Does the pt have substance abuse?: No - Immunizations Immunizations are current?: Yes - POLST Patient has POLST: No PD ED PE NORMAL - Vitals Vital signs reviewed: Yes - General General: Alert and oriented X 3, No acute distress, Well developed/nourished - HEENT HEENT: Atraumatic, PERRL - Neck Neck: Supple, no meningeal sign - Cardiac Cardiac: RRR, No murmur, Strong equal pulses - Respiratory Respiratory: No respiratory distress, Clear bilaterally - Abdomen Abdomen: Normal bowel sounds, Soft, Non tender, Non distended, No organomegaly, Other (no midline abd pulsatile mass) - Male Male : Deferred - Rectal Rectal: Deferred - Back Back: No CVA TTP, No spinal TTP, Other (left lumbar paraspinal muscle spasms increased with flexion. ) - Derm Derm: Warm and dry - Extremities Extremities: No deformity, No tenderness to palpate, Normal ROM s pain, No edema, No calf tenderness / cord - Neuro Neuro: Alert and oriented X 3, incident coordinator 2-12 intact, No motor deficit, No sensory deficit, Normal speech - Psych Psych: Normal mood, Normal affect Results - Vitals Vitals: Vital Signs - 24 hr 01/31/20 01/31/20 19:16 21:40 Temperature 36 C L 36.6 C Heart Rate 76 66 Respiratory 16 18 Rate Blood Pressure 152/85 H 139/86 H O2 Saturation 100 98 Oxygen O2 Source Room air - Labs Labs: Laboratory Tests 01/31/20 19:26 Urine Color YELLOW Urine Clarity CLEAR Urine pH 7.0 Ur Specific [place] 1.010 Urine Protein NEGATIVE Urine Glucose (UA) NEGATIVE Urine Ketones NEGATIVE Urine Occult Blood TRACE-INTA Urine Nitrite NEGATIVE Urine Bilirubin NEGATIVE Urine Urobilinogen 0.2 (NORMAL) Ur Leukocyte Esterase NEGATIVE Ur Microscopic Review NOT INDICATED Urine Culture Comments NOT INDICATED PD MEDICAL DECISION MAKING - ED course Complexity details: reviewed results, re-evaluated patient, d/w patient ED course: 64 y/o m with left lumbar paraspinal muscle spasms/flank pain. no red flags on hx or exam. UA shows trace blood. Patient afebrile, able to urinate without complications. symptoms improved with toradol. will treat conservatively with close follow up. prescription provided for symptomatic treatment. Should return for worsening pain, fevers dysuria or any concerns. Departure - Departure Disposition: 01 Home, Self Care Clinical Impression: History of kidney stones Lumbar strain Qualifiers: Encounter type: initial encounter Qualified Code(s): S39.012A - Strain of muscle, fascia and tendon of lower back, initial encounter Condition: Stable Instructions: ED Sprain Strain Lumbar, Kidney Stones Risk Follow-Up: your, doctor [Other] - Within 1 week Prescriptions: diazePAM [Valium] 5 mg PO BID PRN #7 tablet PRN Reason: Spasms Comments: Take valium as needed for muscle spasms. take ibuprofen as needed for pain or fevers. follow up with a doctor this week for a recheck. Return to the emergency department with any concerns. Discharge Date/Time: 01/31/20 21:51
[2020-01-31] MEDS ORDERED: KETOROLAC 30 MG/ML VIAL IM STA (21:17)
[2020-01-31 21:41] VITALS: BP 139/86
== END 2020-01-31 21:51 | disposition home or self-care (01) ==
LOC: ED 19:09
DX: S39.012A Strain of muscle, fascia and tendon of lower back, initial encounter (principal); R31.29 Other microscopic hematuria; Z87.442 Personal history of urinary calculi
CPT/HCPCS: 81001; 81003; 87086; 96372; 99283; 99284

== ENCOUNTER 2020-09-28 10:42 | Emergency (ER) | payer OTHER ==
--- NOTE | 2020-09-28 12:19 | ED Physician Documentation ---
History of Present Illness - Stated complaint Stated Complaint: BACK PX - Chief complaint Chief Complaint: Back Pain - History obtained from History obtained from: Patient - Additonal information Additional information: PT c/o low back pain, and has a h/o the same. 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 No F/C. No distinct injury. No numbness/tingling/shooting pain in legs. No loss of bowel or bladder control. Review of Systems Ten Systems: 10 systems reviewed and negative Constitutional: reports: Reviewed and negative Eyes: reports: Reviewed and negative Ears: reports: Reviewed and negative Nose: reports: Reviewed and negative Throat: reports: Reviewed and negative Cardiac: reports: Reviewed and negative Respiratory: reports: Reviewed and negative GI: reports: Reviewed and negative : reports: Reviewed and negative Skin: reports: Reviewed and negative Musculoskeletal: reports: Back pain Neurologic: reports: Reviewed and negative Psychiatric: reports: Reviewed and negative Endocrine: reports: Reviewed and negative Immunocompromised: reports: Reviewed and negative PD PAST MEDICAL HISTORY - Past Medical History Past Medical History: Yes Cardiovascular: Hypertension, High cholesterol Respiratory: None Neuro: None Endocrine/Autoimmune: None GI: None : None HEENT: None Psych: None Musculoskeletal: Other Derm: None - Past Surgical History Past Surgical History: Yes General: Appendectomy, Colonoscopy, EGD, Other Ortho: Arthroscopic surgery HEENT: Tonsil/Adenoidectomy - Present Medications Home Medications: Ambulatory Orders Medication Instructions Recorded Confirmed Aspirin [Aspir 81] 81 mg PO DAILY 05/02/15 08/24/18 Simvastatin 20 mg PO DAILY 05/02/15 08/24/18 hydroCHLOROthiazide 25 mg PO DAILY 05/02/15 08/24/18 [Hydrochlorothiazide] Multivitamin [Multi-Day Vitamins] 1 each PO DAILY 05/04/15 08/24/18 Oxycodone HCl/Acetaminophen 1 - 2 each PO Q6H PRN #14 tablet 08/24/18 [Percocet 5-325 mg Tablet] levoFLOXacin [Levaquin] 500 mg PO DAILY #7 tablet 08/24/18 Albuterol Sulfate [Albuterol 2 - 3 puffs IH QID #1 hfa.aer.ad 09/12/19 Sulfate Hfa] dexAMETHasone [Decadron] 4 mg PO DAILY #5 tablet 09/12/19 diazePAM [Valium] 5 mg PO BID PRN #7 tablet 01/31/20 Cyclobenzaprine [Flexeril] 10 mg PO TID PRN #20 tablet 09/28/20 Ibuprofen [Motrin] 800 mg PO Q8H PRN #30 tablet 09/28/20 - Allergies Allergies/Adverse Reactions: Allergies Allergy/AdvReac Type Severity Reaction Status Date / Time No Known Drug Allergies Allergy Verified 09/28/20 10:53 - Social History Does the pt smoke?: No Smoking Status: Never smoker Does the pt drink ETOH?: Yes Does the pt have substance abuse?: No - Immunizations Immunizations are current?: Yes - POLST Patient has POLST: No PD ED PE NORMAL - Vitals Vital signs reviewed: Yes - General General: Alert and oriented X 3, No acute distress - HEENT HEENT: PERRL - Neck Neck: Supple, no meningeal sign - Cardiac Cardiac: RRR, No murmur - Respiratory Respiratory: Clear bilaterally - Abdomen Abdomen: Normal bowel sounds, Soft, Non tender, Non distended - Back Back: No CVA TTP, No spinal TTP, Other (Lumbar paraspinal muscles tender on R.) - Derm Derm: Warm and dry - Extremities Extremities: No deformity - Neuro Neuro: Alert and oriented X 3, paint spray tender 2-12 intact, No motor deficit, No sensory deficit, Normal speech - Psych Psych: Normal mood, Normal affect Results - Vitals Vitals: Vital Signs - 24 hr 09/28/20 09/28/20 10:50 12:26 Temperature 36.2 C L 37.0 C Heart Rate 60 78 Respiratory 16 19 Rate Blood Pressure 149/84 H 140/71 H O2 Saturation 100 95 Oxygen O2 Source Room air PD MEDICAL DECISION MAKING - ED course Complexity details: considered differential, d/w patient ED course: No signs/sx of emergent cause/complications of back pain. Discussed symptomatic management at home. Work note and Flexeril Rx given. Departure - Departure Disposition: 01 Home, Self Care Clinical Impression: Lumbar strain Qualifiers: Encounter type: initial encounter Qualified Code(s): S39.012A - Strain of muscle, fascia and tendon of lower back, initial encounter Condition: Stable Instructions: ED Back Care Tips, ED Sprain Strain Lumbar Prescriptions: Cyclobenzaprine [Flexeril] 10 mg PO TID PRN #20 tablet PRN Reason: Spasms Ibuprofen [Motrin] 800 mg PO Q8H PRN #30 tablet PRN Reason: PAIN &/OR FEVER Comments: Please take ibuprofen and Flexeril as needed for your back pain and stiffness. You may follow-up with your primary care physician as needed. Forms: Activity restrictions Discharge Date/Time: 09/28/20 12:26
[2020-09-28 12:27] VITALS: BP 140/71
== END 2020-09-28 12:26 | disposition home or self-care (01) ==
LOC: ED 10:42
DX: S39.012A Strain of muscle, fascia and tendon of lower back, initial encounter (principal); X50.9XXA Other and unspecified overexertion or strenuous movements or postures, initial encounter; Y93.89 Activity, other specified; Y92.811 Bus as the place of occurrence of the external cause; Y99.0 Civilian activity done for income or pay; I10 Essential (primary) hypertension; Z79.82 Long term (current) use of aspirin
CPT/HCPCS: 99282; 99283

== ENCOUNTER 2022-11-19 16:30 | Outpatient (CLI) | payer OTHER ==
[2022-11-19 21:15] LABS: BASOPHILS % (AUTO) 0.6 %; EOSINOPHILS # (AUTO) 0.3 10^3/uL (0.0-0.7); EOSINOPHILS % (AUTO) 3.6 %; HCT - HEMATOCRIT 47.7 % (42.0-52.0); LYMPHOCYTES # (AUTO) 2.4 10^3/uL (1.5-3.5); LYMPHOCYTES % (AUTO) 34.3 %; MEAN CORPUSCULAR HGB CONC 33.5 g/dL (32.0-36.0); MEAN CORPUSCULAR VOLUME 92.4 fL (80.0-94.0); MEAN PLATELET VOLUME 10.5 fL (7.4-11.4); MONOCYTES # (AUTO) 0.6 10^3/uL (0.0-1.0); MONOCYTES % (AUTO) 8.1 %; NEUTROPHILS # (AUTO) 3.7 10^3/uL (1.5-6.6); NEUTROPHILS % (AUTO) 53.1 %; PLT - PLATELET COUNT 220 10^3/uL (130-450); RED BLOOD COUNT 5.16 10^6/uL (4.70-6.10); RED CELL DISTRIBUTION WIDTH 13.2 % (12.0-15.0)
[2022-11-19 21:29] LABS: ALBUMIN 4.3 g/dL (3.2-5.5); ALBUMIN/GLOBULIN RATIO 1.2 (1.0-2.2); BILIRUBIN,TOTAL 0.5 mg/dL (0.2-1.0); CALCIUM 9.7 mg/dL (8.5-10.3)
== END 2022-11-19 16:45 | disposition home or self-care (01) ==
LOC: LAB.N 16:30
PROVIDERS: ATTEND Physician Assistant Medical
DX: E78.5 Hyperlipidemia, unspecified (principal); I10 Essential (primary) hypertension
CPT/HCPCS: 36415; 80053; 84443; 85025

== ENCOUNTER 2023-02-09 11:39 | Outpatient (CLI) | payer MEDICARE, OTHER ==
[2023-02-09 19:29] LABS: CHOL/HDL RATIO 3.9 (<5.0); CHOLESTEROL 157 mg/dL; HDL CHOLESTEROL 40 mg/dL; LDL CHOLESTEROL,CALCULATED 90 mg/dL; LDL/HDL RATIO 2.3 (<3.6); TRIGLYCERIDES 137 mg/dL (48-352); VLDL CHOLESTEROL 27 mg/dL
== END 2023-02-09 11:40 | disposition home or self-care (01) ==
LOC: LAB.N 11:39
PROVIDERS: ATTEND Nurse Practitioner
DX: E78.5 Hyperlipidemia, unspecified (principal); Z12.5 Encounter for screening for malignant neoplasm of prostate
CPT/HCPCS: 36415; 80061; G0103; 83721; 84153